=== PATIENT | male | born 1990 | race Caucasian/White ===

== ENCOUNTER 2019-03-03 12:36 | Emergency (ER) | payer SELFPAY ==
--- NOTE | 2019-03-03 12:58 | Emergency Department Record ---
History of Present Illness - General Chief complaint: Vomiting Stated complaint: CHILLS,VOMITING, Time Seen by Provider: 03/03/19 12:47 Source: Patient Mode of Arrival: Ambulatory Limitations: No limitations - History of Present Illness Initial comments: The patient is here due to having a 12 hour hx of the acute onset of nausea, vomiting, and loose water stools. He has had some abdominal cramping with the vomiting and diarrhea. Additionally he has been feeling achy all over and sweaty with a mild HENDERSON but no neck pain or fever. The patient is a diabetic and his sugars have been running normal per the patient. The patient states no one at home is ill and he denies eating anything unusual recently. MD complaint: Diarrhea, Nausea, Vomiting Onset/Timin -: Hour(s) Description of Vomiting: Watery Description of Diarrhea: Water Associated Abdominal Pain: Yes Location: LLQ, RLQ Radiation: None Severity: Mild Severity scale (1-10): 3 Quality: Cramping Consistency: Intermittent Improves with: None Worsens with: None Associated Symptoms: Cough, Fever/chills, Headaches, Loss of appetite, Malaise, Nausea/vomiting, Weakness - Related Data Home Medications Medication Instructions Recorded Confirmed Last Taken Insulin NPH Hum/Reg Insulin Hm 15 unit SQ WMEALS 03/03/19 03/03/19 03/02/19 [Novolin 70-30 Flexpen] Previous Rx's Medication Instructions Recorded Ondansetron [Zofran Odt] 4 mg SL .Q4-6H PRN #12 tab.rapdis 03/03/19 Allergies Allergy/AdvReac Type Severity Reaction Status Date / Time cephalexin [From Keflex] Allergy PT UNSURE Verified 03/03/19 12:45 OF REACTION gentamicin Allergy PT UNSURE Verified 03/03/19 12:45 OF REACTION Penicillins Allergy PT UNSURE Verified 03/03/19 12:45 OF REACTION Travel Screening - Travel/Exposure Within Last 30 Days Have you traveled within the last 30 days?: No Review of Systems Constitutional: Denies: Chills, Fever Eyes: Denies: Eye discharge ENT: Denies: Congestion Respiratory: Denies: Cough, Dyspnea Past Medical History - SOCIAL HISTORY Smoking Status: Never smoker Alcohol Use: None Drug Use: None - RESPIRATORY Hx Respiratory Disorders: No - CARDIOVASCULAR Hx Cardio Disorders: No - NEURO Hx Neuro Disorders: No - GI Hx GI Disorders: No - Hx Genitourinary Disorders: No - ENDOCRINE Hx Endocrine Disorders: Yes Hx Diabetes: Yes - MUSCULOSKELETAL Hx Musculoskeletal Disorders: No - PSYCH Hx Psych Problems: No - HEMATOLOGY/ONCOLOGY Hx Hematology/Oncology Disorders: No Family Medical History Any Significant Family History?: No Physical Exam - General General Appearance: Alert, Oriented x3, Cooperative, No acute distress - Head Head exam: Atraumatic, Normocephalic - Eye Eye exam: Normal appearance, PERRL - ENT ENT exam: Mucous membranes moist. negative: Mucous membranes dry Throat exam: Normal inspection. negative: Tonsillar erythema, Tonsillar exudate - Neck Neck exam: Normal inspection, Full ROM. negative: Lymphadenopathy, Meningismus (The neck is very supple.), Tenderness - Respiratory Respiratory exam: Normal lung sounds bilaterally. negative: Respiratory distress - Cardiovascular Cardiovascular Exam: Regular rate, Normal rhythm, Normal heart sounds - GI/Abdominal GI/Abdominal exam: Soft, Normal bowel sounds. negative: Tenderness - Extremities Extremities exam: Normal inspection, Full ROM, Normal capillary refill. negative: Tenderness - Neurological Neurological exam: Alert, Normal gait, Oriented X3. negative: Abnormal gait, Altered, Motor sensory deficit - Skin Skin exam: negative: Rash Course Vital Signs 03/03/19 12:42 Temperature 98.8 F Pulse Rate 73 Respiratory 20 Rate Blood Pressure 123/69 Pulse Ox 96 - Reevaluation(s) Reevaluation #1: The patient is doing a lot better at this time. He states his nausea and mild HENDERSON have resolved and he is ready for home. I did discuss the need to check his sugars frequently and to return for any level > 400. 03/03/19 13:38 Medical Decision Making - Lab Data Result diagrams: 03/03/19 13:01 03/03/19 13:01 Disposition Disposition: Discharge Clinical Impression: Systemic viral illness Disposition: Home, Self-Care Condition: (2) Stable Instructions: Acute Nausea and Vomiting (ED) Additional Instructions: Please drink plenty of fluids and use the Zofran for nausea. Please take today off work and return to the ER for any worsening symptoms, pain, fever, or blood sugar > 400. Prescriptions: Ondansetron [Zofran Odt] 4 mg SL .Q4-6H PRN #12 tab.rapdis PRN Reason: Nausea Forms: Patient Portal Access Time of Disposition: 13:40 Quality - Quality Measures Quality Measures: N/A - Blood Pressure Screening View Details: Yes Does Patient Have Any of the Following: No Blood Pressure Classification: Pre-Hypertensive BP Reading Systolic Measurement: 123 Diastolic Measurement: 69 Screening for High Blood Pressure: < Pre-Hypertensive BP, F/U Documented > [[id number]] Pre-Hypertensive Follow-up Interventions: Referral to alternative/primary care provider.
[2019-03-03] MEDS: ONDANSETRON HCL IV 4 MG/2 ML VIAL IV ONE (13:03)
[2019-03-03] MEDS: ACETAMINOPHEN 1,000 MG/100 ML BTL IVPB ONE (13:03)
[2019-03-03] MEDS: 0.9 % SODIUM CHLORIDE 1,000 ML BAG IV ONE (13:04)
[2019-03-03 13:12] LABS: ABSOLUTE NEUTROPHIL COUNT 4.09; BASO % 0.1 % (0-6); EOS % 0.4 % (0-6); GRAN % 60.8 % (47-80); HEMATOCRIT 40.4 % (42.0-52.0); HEMOGLOBIN 13.3 gm/dl (14.0-18.0); LYMPH % 30.8 % (16-45); MEAN CELL VOLUME 86.5 fl (81-97); MEAN CORPUSCULAR HGB CONC 32.9 g/dl (32-36); MEAN PLATELET VOLUME 9.5 fl (7.4-10.4); MONO % 7.9 % (0-9); PLATELET COUNT 244 K/uL (130-400); RED BLOOD COUNT 4.67 M/uL (4.40-5.70); RED CELL DISTRIBUTION WIDTH 13.2 % (11.5-14.5); WHITE BLOOD COUNT W/O DIFF 6.7 K/uL (4.2-12.2)
[2019-03-03 13:13] LABS: MEAN CORPUSCULAR HEMOGLOBIN 28.4 pg (27-33)
[2019-03-03 13:17] LABS: URINE APPEARANCE CLEAR; URINE BILIRUBIN NEGATIVE (NEGATIVE); URINE BLOOD NEGATIVE (NEGATIVE); URINE COLOR YELLOW; URINE KETONE TRACE (NEGATIVE); URINE LEUKOCYTE ESTERASE NEGATIVE (NEGATIVE); URINE NITRITE NEGATIVE (NEGATIVE); URINE PROTEIN NEGATIVE (NEGATIVE); URINE UROBILINOGEN 0.2 E.U./dL (0.20 - 1.00)
[2019-03-03 13:18] LABS: ACETONE,SERUM NEGATIVE (NEGATIVE)
[2019-03-03 13:18] LABS: URINE GLUCOSE (UA) >=1000 mg/dL (NEGATIVE)
[2019-03-03 13:22] LABS: BLOOD UREA NITROGEN 8 mg/dL (6-20); CREATININE 0.8 mg/dL (0.7-1.2); EST GLOMERULAR FILTRATION RATE > 60 mL/min; LIPASE 24 U/L (13-60); TOTAL PROTEIN 6.6 g/dL (6.6-8.7)
[2019-03-03 13:24] LABS: GLUCOSE,RANDOM 298 mg/dL (74-109)
[2019-03-03 13:27] LABS: ALBUMIN 4.1 g/dL (4.0-5.0); ALKALINE PHOSPHATASE 68 U/L (40-129); ALT/SGPT 25 U/L (<41); AST/SGOT 16 U/L (10.0-50.0)
[2019-03-03 13:28] LABS: BILIRUBIN,DIRECT < 0.2 mg/dL (0-0.3)
== END 2019-03-03 14:01 | disposition home or self-care (01) ==
LOC: ER 12:36
DX: B34.9 Viral infection, unspecified (principal); R11.2 Nausea with vomiting, unspecified; R19.7 Diarrhea, unspecified; R51 Headache; R10.84 Generalized abdominal pain; E11.9 Type 2 diabetes mellitus without complications; Z79.4 Long term (current) use of insulin
CPT/HCPCS: 80048; 80076; 81003; 82009; 83690; 85025; 96361; 96365; 96375; 99284; J2405; J7030